=== PATIENT | female | born 1980 | race Caucasian/White ===

== ENCOUNTER 2017-07-15 01:38 | Emergency (ER) | payer SELFPAY, OTHER ==
[2017-07-15] MEDS: IBUPROFEN 600 MG TAB PO (05:56)
== END 2017-07-15 08:21 | disposition home or self-care (01) ==
LOC: E/R 01:38
DX: F10.920 Alcohol use, unspecified with intoxication, uncomplicated (principal); E11.9 Type 2 diabetes mellitus without complications; F17.210 Nicotine dependence, cigarettes, uncomplicated; Z79.4 Long term (current) use of insulin
CPT/HCPCS: 73030; 73030-RT; 73080-RT; 73130-RT; 99283-25